=== PATIENT | male | born 1950 | race Caucasian/White ===

== ENCOUNTER 2017-10-14 12:05 | Emergency (ER) | END 2017-10-14 13:40 | disposition home or self-care (01) ==

== ENCOUNTER 2018-03-28 12:35 | Inpatient (IN) | END 2018-03-29 13:15 | disposition home or self-care (01) | DRG 250 ==

== ENCOUNTER 2018-12-10 06:59 | Observation (INO) | payer MEDICARE, OTHER ==
[~2018-12-10] VITALS: Ht 171.4 cm; Wt 92.7 kg
[2018-12-10] VITALS (16 sets, daily range): BP systolic 91–123; BP diastolic 55–87; PULSE 61–70; RESP 14–24; Ht 171.4 cm; Wt 92.7 kg
[~2018-12-10 06:59] MED LIST: ASPI81TA52 PO; ATOR40TA68 PO; DIAZEPAM 5 MG TAB PO ONE; DOCU-221 PO; FLOV220 INHALATION; METO-319 PO; PRAS10TA6 PO; SOD CHLORIDE 0.9% 1,000 ML IV SCH; VALS160T20 PO
[2018-12-10] MEDS ORDERED: ASPI81TA52 PO (07:58)
[2018-12-10] MEDS ORDERED: TAMS0.4C2 PO (07:59)
[2018-12-10] MEDS ORDERED: METO-319 PO (07:59)
[2018-12-10] MEDS ORDERED: ISOS30TA67 PO (08:00)
[2018-12-10] MEDS ORDERED: EPLE25TA PO (08:01)
[2018-12-10] MEDS ORDERED: PRAS10TA6 PO (08:01)
[2018-12-10] MEDS ORDERED: LIDOCAINE 1% (MDV) 20 ML INJ ONE (09:05)
[2018-12-10] MEDS ORDERED: NITROGLYCERIN (IC) 100 MCG/ML INJ ONE (09:05)
[2018-12-10] MEDS ORDERED: IODIXANOL LOCM 100 ML BTL ONE ×3 (09:05→10:36)
[2018-12-10] MEDS ORDERED: VERAPAMIL 5 MG INJ ONE (09:05)
[2018-12-10] MEDS ORDERED: HEPARIN 1000 UNITS/ML 10 ML INJ ONE (09:05)
[2018-12-10] MEDS ORDERED: MIDAZOLAM 1 MG/ML 2 ML INJ ONE (09:09)
[2018-12-10] MEDS ORDERED: FENTAnyl 50 MCG/ML VIAL ONE (09:09)
[2018-12-10] MEDS ORDERED: PRASUGREL HYDROCHLORIDE 10 MG TABLET PO ONE (09:12)
[2018-12-10] MEDS ORDERED: ASPIRIN 81 MG TAB ONE (09:12)
[2018-12-10] MEDS ORDERED: SOD CHLORIDE 0.9% 1,000 ML IV SCH (10:44)
--- NOTE | 2018-12-10 10:51 | OPPN ---
Date/Time of Note Date/Time of Note DATE: 12/10/18 TIME: 10:50 Operative Report Preoperative Diagnosis CAD, Ischemic CM Postoperative Diagnosis CAD Operation/Procedure Performed 1. PTCA alone mid LAD stent 2. 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 PCI of ostial RCA with HITESH x 1 Surgeon see signature line life science research assistant n/a Anesthesia: moderate sedation Estimated blood loss: 50 - 100 ml's Transfusion Required none Specimen none Grafts/Implants none Complications none ZIGGY MUJICA Dec 10, 2018 10:51
[2018-12-10] MEDS ORDERED: ACETAMINOPHEN 325 MG TAB PO PRN (11:00)
[2018-12-10] MEDS ORDERED: AL HYDROX/MG HYDROX/SIMETH 30 ML CUP PO PRN (11:00)
[2018-12-10] MEDS ORDERED: morphine 2 MG INJ IV PRN (11:00)
[2018-12-10] MEDS ORDERED: ONDANSETRON 4 MG INJ IV PRN (11:00)
--- NOTE | 2018-12-10 13:23 | OPR ---
DATE OF OPERATION: 12/10/2018 PROCEDURES PERFORMED: 1. Left heart catheterization. 2. Administration of moderate sedation. 3. Percutaneous coronary angioplasty alone of mid LAD stent. 4. Intravascular ultrasound of the mid LAD stent. 5. Percutaneous coronary angioplasty alone of WATCH LEADER of OM2. 6. Percutaneous coronary intervention of proximal right coronary artery with drug-eluting stent x1. PREOPERATIVE DIAGNOSES: 1. Coronary artery disease. 2. Ischemic cardiomyopathy. 3. Angina pectoris. POSTOPERATIVE DIAGNOSES: Multivessel coronary artery disease. BEHAVIORAL HEALTH TECH: Ervin Camacho MD HISTORY OF PRESENT ILLNESS: Mr. Hale is a pleasant 68-year-old man with history of previous anteri or myocardial infarction requiring multiple PCIs. The patient with ischemic cardiomyopathy and had p resented in 03/2018 with stent thrombosis with VF arrest to [facility] status post PTCA alone with good recovery. He did have residual OM and right coronary artery disease. The patie nt made a good recovery; however continued to have angina despite medical therapy with beta ray a nd nitrate therapy. The patient is also with decreased EF. with patient in regards to benefit from revascularization with CABG versus percutaneous coronary intervention was discussed; however, t he patient strongly opposed CABG surgery given risk-benefit ratio and decided to pursue with attempte d PCI. All risks and benefits of this were discussed with patient prior to arrival in catheterizatio n lab. PROCEDURE DESCRIPTION: The patient was brought to catheterization lab in a fasting state in stable c ondition. Right wrist was prepped and draped in usual sterile fashion anesthetized with 1% lidocaine solution. A 6-Nepalese Terumo Slender sheath was placed in the right radial artery without difficulty and aspirated and flushed per protocol. Intraarterial nitroglycerin and verapamil were given. IV h eparin was given. A 6-Nepalese guiding catheter XB 3.0 was advanced to the left coronary artery. A 18 0 cm Runthrough wire was then advanced to the distal LAD without difficulty. A 2.5 x 15 mm Emerge ba lloon was then advanced to the mid LAD area of restenosis and inflated in sterile fashion. The ballo on was removed and exchanged for Oktalogic IVUS catheter was used to perform the IVUS study of the mid LAD which showed severe in-stent restenosis as well as reference diameter 2.5 x 2.9 mm distal to the stent. The IVUS catheter was then removed and exchanged for a NC Euphora 3.0 x 12 mm balloon which w as inflated to high pressures in the mid LAD stent back to the distal portion of the more proximal LA D stent in serial fashion. There was good result with YADIRA-3 flow and given patient has already over lapping areas of stent, decision was made to forego further attempt at PCI and continue with balloon only result. The Euphora balloon was removed and the Runthrough wires were exchanged for a 190 cm 0. 014 inch Whisper Guidewire was advanced successfully passed the WATCH LEADER of the OM2 vessel to the distal v essel. A 2.0 x 12 mm Emerge balloon was then advanced to that and was inflated to nominal pressures from the proximal portion of the OM branch. This established antegrade YADIRA-3 with good result perio d. Given smaller sized of vessel and possible compromise of the main circumflex artery with attempte d PCI, decision was made to continue with balloon only result. All wires and catheters were removed. The guide catheter was exchanged for a 6-Nepalese FL4 guiding catheter was used to engage the right c oronary artery and standard angiograms were obtained. The 180 cm 0.014 inch Runthrough wire was adva nced to the distal RCA artery without difficulty. The 2.5 x 15 mm Emerge balloon was then advanced t o the proximal RCA and inflated to high pressure. The balloon was deflated and exchanged for a Resol jena [place] 2.75 x 18 mm stent which was deployed at high pressure in the proximal ostial RCA. The prox imal portion of the stent was then flared to high pressure with the stent balloon. The balloon was t hen removed and repeat angiogram showed good YADIRA-3 flow with no evidence of complication as dissecti on, perforation or distal embolization. The patient tolerated the procedure well without complicatio n. It should be noted that the XB catheter was advanced to LV at the beginning of procedure over nguyễn dewire and LV pressures were measured as well. Hemostasis was obtained with a TR band. ESTIMATED BLOOD LOSS: Less than 100 mL. COMPLICATIONS: None. SPECIMENS OBTAINED: None. FINDINGS: Coronary anatomy: 1. Left main has no significant disease. 2. LAD is a large wraparound vessel. In the proximal portion, there is a previously placed stent wi th calcification. No significant restenosis at the very beginning of the stent towards the distal po rtion of the stent. At the first septal artery, there is 50% restenosis in the stent. It overlaps w ith a second stent towards the mid LAD which has a severe 90% in-stent restenosis. Distal to stent, the artery is without significant disease and YADIRA-3 flow. It gives rise to multiple diagonal arteri es which are without significant disease. 3. Left circumflex artery: Appears to be codominant artery, large in size with moderate calcificati on in the beginning the artery, 30% stenosis. The mid left circumflex is without significant disease . The distal left circumflex is without significant disease. It bifurcates into multiple OM branche s as well as a distal left posterolateral branch. There is OM2 branch which appears to be subtotally occluded 99% to 100% with YADIRA 1 to 2 filling of the branch via collateral flow. 4. Right coronary artery is a large codominant artery. In the ostium, there is 80% stenosis with st ents to proximal vessel. The mid to distal RCA is without significant disease. Distally, the RCA gi ves rise to a small right posterior descending artery branch without significant disease. HEMODYNAMICS: LVEDP is 19 mmHg. No significant gradient on LV to AO pullback. PERCUTANEOUS CORONARY INTERVENTION LESION DESCRIPTION: 1. LAD in-stent restenosis and the mid LAD stent 90%: Pre-stenosis and post-stenosis is 10%. Pre-T IMI 3 and post-YADIRA 3 flow, status post PTCA alone with Euphora NC 3.0 x 12 mm balloon. 2. Left circumflex/OM 2 branch: Pre-stenosis 100% and post-stenosis 0%. Pre-YADIRA flow 1 to 2. Pos t-YADIRA flow 3. Status post PTCA alone with an Emerge 2.0 x 12 mm balloon. 3. Proximal right coronary artery: Pre-stenosis 80%, post-stenosis 0%. Pre-YADIRA flow 3, post-YADIRA flow 3. Status post PCI with Resolute [place] 2.75 x 18 mm drug-eluting stent. 4. IVUS study: Mid LAD with severe in-stent restenosis. Reference vessel distal stent is a 2.5 x 2 .9 mm. SUMMARY: 1. Severe multivessel coronary artery disease. 2. Status post PTCA alone of in-stent restenosis of mid LAD stent as well as WATCH LEADER of OM2. 3. Status post PCI with drug-eluting stent to proximal RCA. 4. Severe ischemic cardiomyopathy with mildly elevated left ventricular filling pressures. RECOMMENDATIONS: 1. Given multivessel intervention, we will monitor overnight for 1 night. 2. We will continue aspirin 81 mg p.o. daily. 3. Continue Paxil 10 mg p.o. daily. 4. Continue statin. 5. Continue nitrates and beta ray therapy. 6. We will follow up closely in outpatient and consider a referral to cardiac rehabilitation. Dictated By: ERVIN LOPEZ/MARYBETH Conf#: [id number] DID#: [id number]
[2018-12-11] VITALS: PULSE 62
[2018-12-11 00:30] VITALS: BP 126/75; PULSE 70; RESP 18
[2018-12-11 04:46] VITALS: PULSE 72
[2018-12-11 05:09] VITALS: BP 109/63; PULSE 67; RESP 18
[2018-12-11 07:34] VITALS: BP 106/65; PULSE 64; RESP 18
[2018-12-11 08:10] VITALS: PULSE 67
[2018-12-11] MEDS ORDERED: PRASUGREL HYDROCHLORIDE 10 MG TABLET PO SCH (09:00)
[2018-12-11] MEDS ORDERED: ASPIRIN (EC) 81 MG TAB PO SCH (09:00)
[2018-12-11] MEDS ORDERED: METOPROLOL (XL) 50 MG TAB PO SCH (09:00)
[2018-12-11] MEDS ORDERED: NON-FORMULARY/PATIENT OWN MED (Eplerenone (Inspra) 25 MG) PO SCH (09:00)
[2018-12-11] MEDS ORDERED: ISOSORBIDE MONONITRATE(SR)30 MG TAB PO SCH (09:00)
--- NOTE | 2018-12-11 09:44 | PDOCDIS ---
Discharge Instructions DIAGNOSIS Discharge Diagnosis CAD s/p PCI Ischemic Cardiomyopathy CONDITION [id number] Patient Condition: Yychy3r Good HOME CARE INSTRUCTIONS: [id number] Diet Instructions: Ymbue1t Low Fat /Cholesterol (< 2g Sodium) ACTIVITY: Oyetc9Bs Activity Restrictions: Yyrqj9a Slowly Increase Activity Avoid heavy lifting (with right hand x 1 week) [id number] Bathing Restrictions: Wvtud2p ok to shower, keep R wrist dry after shower, do not soak FOLLOW UP/APPOINTMENTS Follow-up Plan f/u with Dr. Mujica in Clinic in 1 week ZIGGY MUJICA Dec 11, 2018 09:44
--- NOTE | 2018-12-11 09:49 | DS ---
Date/Time of Note Date/Time of Note DATE: 12/11/18 TIME: 09:44 Discharge Summary Admission/Discharge Info Admit Date/Time Dec 10, 2018 at 11:00 Discharge Date/Time 12/11/2018 Discharge Diagnosis CAD s/p PCI Ischemic Cardiomyopathy Patient Condition: Good Procedures Left Heart Catheterization PCI of RCA PTCA alone of mid LAD, OM2 Hx of Present Illness 68 yo with h/o multiple AMI most recently 03/2018 at [facility] with stent thrombosis of mid LAD. Pt with ICM and chest pain. LHC 09/2018 at [facility] showed multivessel CAD with restenosis of mid LAD stent. Pt seen as outpt, cont to have cp despite medical therapy with betablocker/nitrates. Pt declined CABG surgery, would like to pursue percutaneous options. Hospital Course Pt had LHC with PCI of prox/ostial RCA with HITESH x 1, PTCA alone of COMMUNITY DEVELOPMENT COORDINATOR of OM2, an PTCA alone of mid LAD. Did well after and monitored overnight. No bleeding noted from R radial cath stie. no chest pain/sob noted with ambulation, tolerated po, no bleeding. issues. Tele with NSR, rare PVCs. Pt will be d/c to home with close outpt follow up. Exam GEN: NAD HEENT OP clear no jvd 2_ carotid CV: RRR nl s1s2, no mgr PULM: CTA ABD soft ntnd EXT: 2+ r radial no hematoma, no c/c/e Neuro non focal Psych: calm, normal mood Home Meds Reported Medications Eplerenone (Inspra) 25 Mg Tablet, 25 MG PO DAILY, TAB 12/10/18 Prasugrel Hydrochloride* (Effient*) 10 Mg Tablet, 10 MG PO DAILY, TAB 12/10/18 Isosorbide Mononitrate* (Isosorbide Mononitrate*) 30 Mg Tab.er.24h, 30 MG PO DAILY, TAB 12/10/18 Tamsulosin Hcl* (Tamsulosin Hcl*) 0.4 Mg Cap.er.24h, 0.4 MG PO DAILY, CAP 12/10/18 Metoprolol Succinate* (Toprol XL*) 50 Mg Tab.er.24h, 50 MG PO DAILY, #30 TAB 12/10/18 Aspirin (Low Dose Aspirin) 81 Mg Tablet.dr, 81 MG PO DAILY, #30 TAB 2/27/19 Discontinued Reported Medications Fluticasone Propionate* (Flovent* HFA 220) 12 Gm Inha, 2 PUFF INHALATION BID, #1 INHALER 12/15/16 Docusate Sodium* (Doc-Q-Lace*) 100 Mg Capsule, 100 MG PO BID PRN for CONSTIPATION, CAP 11/11/14 Discontinued Scripts Metoprolol Succinate* (Toprol XL*) 50 Mg Tab.er.24h, 50 MG PO DAILY for 90 Days, #90 TAB 5 Refills Prov:MANUEL YATES MD 03/29/18 Valsartan* (Diovan*) 160 Mg Tablet, 160 MG PO DAILY for 90 Days, #90 TAB 5 Refills Prov:MANUEL YATES MD 03/29/18 Aspirin (Low Dose Aspirin) 81 Mg Tablet.dr, 81 MG PO DAILY, #90 TAB 6 Refills Prov:MANUEL YATES MD 03/29/18 Prasugrel Hydrochloride* (Effient*) 10 Mg Tablet, 10 MG PO DAILY for 90 Days, #90 TAB 5 Refills Prov:MANUEL YATES MD 03/29/18 Atorvastatin* (Atorvastatin*) 40 Mg Tablet, 80 MG PO QHS, #90 TAB 5 Refills Prov:MANUEL YATES MD 03/29/18 Follow-up Plan f/u with Dr. Mujica in Clinic in 1 week Primary Care Provider Not On Staff Doctor Time spent on discharge: < 30 minutes ZIGGY MUJICA Dec 11, 2018 09:49
== END 2018-12-11 10:37 | disposition home or self-care (01) ==
LOC: SDS 06:59 → TEL 06:59 → UNDOADMIN 11:00 → TEL 11:00 → SDS 21:11
PROVIDERS: ADMIT Internal Medicine Interventional Cardiology; ATTEND Internal Medicine Interventional Cardiology
DX: I25.119 Atherosclerotic heart disease of native coronary artery with unspecified angina pectoris (principal); I25.5 Ischemic cardiomyopathy; I25.2 Old myocardial infarction
CPT/HCPCS: 92920; 92978; 93458; C1725; C1887; C9600; G0378; J1644; J2250; J3010; Q9967